=== PATIENT | male | born 1955 | race Two or more races ===

== ENCOUNTER 2023-05-25 07:15 | Inpatient (IN) | payer OTHER ==
[~2023-05-25] VITALS: Ht 152.4 cm; Wt 86.2 kg
[2023-05-25] MEDS ORDERED: OLANZAPINE5 MG PO (08:31)
[2023-05-25] MEDS ORDERED: RESTORIL15 MG PO (08:31)
[2023-05-25] MEDS ORDERED: RESPERIDONE PO (08:32)
[2023-05-25] MEDS ORDERED: MIRTAZAPINE30 M1 PO (08:32)
[2023-05-25 08:54] LABS: HEMOGLOBIN 14.5 g/dL (13-16.00); MEAN CELL VOLUME 86.8 fL (80.0-100.00); MEAN CORPUSCULAR HEMOGLOBIN 29.3 pg (27.00-32.0); MEAN CORPUSCULAR HGB CONC 33.7 g/dl (32.0-36.0); PLATELET COUNT 319 K/uL (150-450); RED BLOOD COUNT 4.95 M/uL (4.00-6.00); RED CELL DISTRIBUTION WIDTH 13.8 % (11.5-14.5)
[2023-05-25 09:20] LABS: PARTIAL THROMBOPLASTIN TIME 29.9 SECONDS (22.0-34.0)
[2023-05-25 09:53] LABS: ALBUMIN 4.2 gm/dL (3.4-5.0); BILIRUBIN TOTAL 0.56 mg/dL (0.3-1.2); CALCIUM 9.8 mg/dL (8.5-10.1); CREATININE SERUM 1.24 mg/dL (0.70-1.30); GFR 58.33; GLOBULINA 4.6 G/DL (2.4-3.5); POTASSIUM 4.74 mEq/L (3.5-5.1); TOTAL PROTEIN 8.8 gm/dL (6.4-8.2)
[2023-06-01] MEDS ORDERED: TADALAFIL10 MG (07:51)
[2023-06-01] MEDS ORDERED: RISPERDAL1 MG PO (07:54)
[2023-06-02 07:09] LABS: HEMATOCRIT 35.3 % (39.0-48.0); HEMOGLOBIN 11.8 g/dL (13-16.00); MEAN CELL VOLUME 87.9 fL (80.0-100.00); MEAN CORPUSCULAR HEMOGLOBIN 29.5 pg (27.00-32.0); MEAN CORPUSCULAR HGB CONC 33.5 g/dl (32.0-36.0); PLATELET COUNT 217 K/uL (150-450); RED BLOOD COUNT 4.01 M/uL (4.00-6.00); RED CELL DISTRIBUTION WIDTH 13.4 % (11.5-14.5)
[2023-06-03 07:26] LABS: HEMATOCRIT 33.1 % (39.0-48.0); HEMOGLOBIN 10.7 g/dL (13-16.00); MEAN CELL VOLUME 87.7 fL (80.0-100.00); MEAN CORPUSCULAR HEMOGLOBIN 28.4 pg (27.00-32.0); MEAN CORPUSCULAR HGB CONC 32.4 g/dl (32.0-36.0); PLATELET COUNT 189 K/uL (150-450); RED BLOOD COUNT 3.78 M/uL (4.00-6.00); RED CELL DISTRIBUTION WIDTH 13.4 % (11.5-14.5)
[2023-06-03] MEDS ORDERED: NORFLEX100MG PO (11:38)
[2023-06-03] MEDS ORDERED: XARELTO10 MG PO (11:38)
[2023-06-03] MEDS ORDERED: GABAPENTIN100 MG PO (11:38)
[2023-06-03] MEDS ORDERED: OXYC1TAB9 PO (11:38)
== END 2023-06-03 21:58 | DRG 470 ==
LOC: SURG 05-31 07:15 → EDBD 05-31 07:15 → O/R 06-01 06:30 → SURG 06-01 07:15 → SURH 06-01 10:23
PROVIDERS: ADMIT Orthopaedic Surgery; ATTEND Orthopaedic Surgery
PROC: 0SRD0JZ Replacement of Left Knee Joint with Synthetic Substitute, Open Approach (ICD-10-PCS; principal; 2023-06-01 09:45)
DX: M17.12 Unilateral primary osteoarthritis, left knee (principal); D62 Acute posthemorrhagic anemia; M85.662 Other cyst of bone, left lower leg